=== PATIENT | female | born 1955 | race American Indian/Alaskan Native ===

== ENCOUNTER 2017-08-26 08:02 | Outpatient (CLI) | payer BC ==
--- NOTE | 2017-08-26 14:57 | Mammography Report ---
BILATERAL DIGITAL SCREENING MAMMOGRAM with CAD: 08/26/17 08:02:00 CLINICAL: Routine screening. COMPARISON:05/16/16 FINDINGS: The breasts are almost entirely fatty. No mass, architectural distortion or suspicious calcifications. IMPRESSION: No mammographic evidence of malignancy. BI-RADS CATEGORY: 1 - - Negative RECOMMENDATION: Routine mammographic screening in one year. COMMENT: Patient follow-up letters are generated by our [employer] application.
== END 2017-08-26 08:03 | disposition home or self-care (01) ==
LOC: SPVWC 08:02
PROVIDERS: ATTEND Internal Medicine
DX: Z12.31 Encounter for screening mammogram for malignant neoplasm of breast (principal)
CPT/HCPCS: 77067

== ENCOUNTER 2017-09-30 15:04 | Outpatient (CLI) | payer OTHER ==
--- NOTE | 2017-10-02 12:01 | Mammography Report ---
BONE DENSITY STUDY: Osteoporosis screening. DEFINITIONS: BMD = Bone Mineral Density T-score = BMD related to mean peak bone mass of young adult (mean expressed in Standard Deviation) Z-score = Age matched BMD expressed in SD World Health Organization (WHO) Diagnostic Criteria Normal T-score > -1 SD Osteopenia T-score between -1 and -2.4 SD Osteoporosis T-score -2.5 SD or below FINDINGS: The weighted average BMD of lumbar spine L1-L4 is 1.062 with a T-score of 0.1. The weighted average BMD of the left hip is 0.947 with a T-score of 0.0. IMPRESSION: The patient's average T-score is diagnostic for normal bone density and low relative risk for fracture. NOTE: BMD is not the only risk factor for fracture; also consider factors such as the patient's age, risk of falling, previous osteoporotic fracture, family history of osteoporotic fractures, current smoker, and low body weight. Mack's triangle is a region of interest in femur, predominantly of trabecular bone. It is not a true anatomic site, and ISCD does not recommend its use clinically.
== END 2017-09-30 15:05 | disposition home or self-care (01) ==
LOC: MAMMO 15:04
PROVIDERS: ATTEND Internal Medicine
DX: M81.0 Age-related osteoporosis without current pathological fracture (principal)
CPT/HCPCS: 77080

== ENCOUNTER 2018-09-05 08:52 | Outpatient (CLI) | payer BC, OTHER ==
--- NOTE | 2018-09-05 10:45 | Mammography Report ---
Screening mammogram: Routine views compared to prior exams dating back to 2016. In the right MLO view there is a circumscribed small dense nodule measuring 2.5 mm. It is only identified in the lateral projection. It may have been present and even smaller on prior mammogram in 2018. The findings are otherwise fatty replaced bilaterally with no other findings and no interval changes. CAD is not captured. Impression: Right breast asymmetry. Recommendation: Additional compression imaging of the right breast and ultrasound as needed. BI-RADS CATEGORY: 0 = Needs additional imaging evaluation ACR BI-RADS MAMMOGRAPHIC CODES: 0 = Needs additional imaging evaluation; 1 = Negative; 2 = Benign; 3 = Probably benign; 4 = Suspicious; 5 = Malignant; 6 = Known biopsy-proven malignancy COMMENT: 1. Dense breast tissue, i.e., adenosis, fibrocystic changes, etc., may obscure an underlying neoplasm. 2. Approximately 10% of cancers are not detected with mammography. 3. A negative mammography report should not delay biopsy if a clinically suspicious mass is present.
== END 2018-09-05 08:53 | disposition home or self-care (01) ==
LOC: SPVWC 08:52
PROVIDERS: ATTEND Internal Medicine
DX: Z12.31 Encounter for screening mammogram for malignant neoplasm of breast (principal)
CPT/HCPCS: 77067

== ENCOUNTER 2018-09-25 09:13 | Outpatient (CLI) | payer BC ==
--- NOTE | 2018-09-25 10:10 | Mammography Report ---
RIGHT DIGITAL DIAGNOSTIC MAMMOGRAM : 09/25/18 09:13:00 CLINICAL: Recalled for asymmetry. COMPARISON:09/05/18 screening FINDINGS: Additional mammographic views were performed and are negative. IMPRESSION: Negative Mammogram. BI-RADS CATEGORY: 1 -- Negative RECOMMENDATION: Routine mammographic screening in one year. COMMENT: 1. Dense breast tissue, i.e., adenosis, fibrocystic changes, etc., may obscure an underlying neoplasm. 2. Approximately 10% of cancers are not detected with mammography. 3. A negative mammography report should not delay biopsy if a clinically suspicious mass is present. COMMENT: Patient follow-up letters are generated via our [employer] application.
== END 2018-09-25 09:14 | disposition home or self-care (01) ==
LOC: SPVWC 09:13
PROVIDERS: ATTEND Internal Medicine
DX: R92.8 Other abnormal and inconclusive findings on diagnostic imaging of breast (principal)

== ENCOUNTER 2019-02-04 13:40 | Observation (INO) | payer BC ==
[2019-02-04] MEDS ORDERED: ANTIVERT PO ONE (14:40)
[2019-02-04] MEDS ORDERED: FIORICET PO ONE (14:40)
[2019-02-04] MEDS ORDERED: ZOFRAN IV ONE (14:40)
--- NOTE | 2019-02-04 14:44 | Emergency Department Report ---
HPI - General Chief Complaint: Dizziness Time Seen by Provider: 02/04/19 14:22 - HPI HPI: Room 3 The patient is a 63-year-old female presenting with a chief complaint syncope. The patient states she has had an intermittent headache and dizziness for the past 5 days. The patient states yesterday while at work she had gotten up from her desk and began walking towards a follow When she had a syncopal episode the patient denies any preceding symptoms. Patient denies shortness of breath, palpitations, chest pain or dizziness at the time. Patient states her next memory is awakening on the floor surrounded by staff. EMS was called and came to the scene to evaluate the patient. EMS recommended the patient be transported to the hospital but patient refused. Patient states she went to an urgent care facility later that evening and was advised to come to the ED. The patient states she went home and started this morning went to see her primary physician when turn sent the patient to the ED. Patient complains of still having a headache currently and gives his pain a score of 10/10. Patient denies history of fever. Patient states she had some episodes of nausea vomiting. The patient states her dizziness does not change with change in position Location: [See above] Duration: [See above] Quality: [See above] Severity: [See above] Timing: [See above] Context: [See above] Modifying factors: [See above] Associated signs and symptoms: [see above] ED Past Medical Hx - Past Medical History Previous Medical History?: Yes Hx Hypertension: Yes Hx Diabetes: Yes Additional medical history: high cholestrol. fibromyalgia - Surgical History Past Surgical History?: No - Family History Family history: no significant - Social History Smoking Status: Former Smoker (none 19 years) Substance Use Type: None - Medications Home Medications: Home Medications Medication Instructions Recorded Confirmed Last Taken Type DULoxetine [Cymbalta] 60 mg PO QDAY 02/04/19 02/04/19 02/03/19 History Labetalol [Labetalol 200mg TAB] 200 mg PO BID 02/04/19 02/04/19 02/03/19 History Lovastatin [Altoprev] 20 mg PO QHS 02/04/19 02/04/19 02/03/19 History Pregabalin [Lyrica] 50 mg PO QHS 02/04/19 02/04/19 02/03/19 History Sitagliptin Phosphate [Januvia] 100 mg PO QDAY 02/04/19 02/04/19 02/03/19 History metFORMIN [Glucophage] 500 mg PO BID 02/04/19 02/04/19 02/03/19 History traMADol [Ultram] 50 mg PO QDAY 02/04/19 02/04/19 02/03/19 History ED Review of Systems ROS: Stated complaint: HEADACHE/DIZZINESS Other details as noted in HPI Constitutional: no symptoms reported Eyes: denies: eye pain ENT: denies: throat pain Respiratory: denies: shortness of breath Cardiovascular: denies: chest pain, palpitations Endocrine: no symptoms reported Gastrointestinal: nausea, vomiting Musculoskeletal: denies: back pain Skin: denies: lesions Neurological: headache, vertigo Physical Exam - Physical Exam Vital Signs: Vital Signs 02/04/19 13:43 Temperature 98.5 F Pulse Rate 63 Respiratory 16 Rate Blood Pressure 156/65 O2 Sat by Pulse 100 Oximetry Physical Exam: GENERAL: The patient is well-developed well-nourished female lying on stretcher not appearing to be in acute distress. [] HEENT: Normocephalic. Atraumatic. Extraocular motions are intact. Patient has moist mucous membranes. No nystagmus noted NECK: Supple. No meningitic signs are noted. Trachea midline CHEST/LUNGS: Clear to auscultation. There is no respiratory distress noted. HEART/CARDIOVASCULAR: Regular. There is no tachycardia. There is no gallop rub or murmur. ABDOMEN: Abdomen is soft, nontender. Patient has normal bowel sounds. There is no abdominal distention. SKIN: There is no rash. There is no edema. There is no diaphoresis. NEURO: The patient is awake, alert, and oriented. The patient is cooperative. The patient has no focal neurologic deficits. The patient has normal speech. Cranial nerves II through XII grossly intact, no drift MUSCULOSKELETAL: There is no evidence of acute injury. ED Course Vital Signs 02/04/19 13:43 Temperature 98.5 F Pulse Rate 63 Respiratory 16 Rate Blood Pressure 156/65 O2 Sat by Pulse 100 Oximetry ED Medical Decision Making - Lab Data Result diagrams: 02/04/19 15:08 02/04/19 15:08 Laboratory Tests 02/04/19 02/04/19 02/04/19 15:08 15:08 15:08 WBC 7.0 RBC 4.90 Hgb 14.3 Hct 43.7 H MCV 89 MCH 29 MCHC 33 RDW 15.2 Plt Count 248 Lymph % (Auto) 29.9 Vermilion % (Auto) 6.5 Eos % (Auto) 2.2 Baso % (Auto) 1.0 Lymph # 2.1 Vermilion # 0.5 Eos # 0.2 Baso # 0.1 Seg Neutrophils % 60.4 Seg Neutrophils # 4.2 PT 12.6 INR 0.97 APTT 27.3 D-Dimer 675.71 H Sodium 142 Potassium 4.8 Chloride 104.5 Carbon Dioxide 23 Anion Gap 19 BUN 13 Creatinine 0.7 Estimated GFR > 60 BUN/Creatinine Ratio 19 Glucose 134 H Calcium 9.0 Magnesium 1.80 Total Bilirubin 0.20 AST 19 ALT 11 Alkaline Phosphatase 68 Troponin T < 0.010 NT-Pro-B Natriuret Pep 52.15 Total Protein 7.2 Albumin 3.8 L Albumin/Globulin Ratio 1.1 TSH Free T4 02/04/19 15:08 WBC RBC Hgb Hct MCV MCH MCHC RDW Plt Count Lymph % (Auto) Vermilion % (Auto) Eos % (Auto) Baso % (Auto) Lymph # Vermilion # Eos # Baso # Seg Neutrophils % Seg Neutrophils # PT INR APTT D-Dimer Sodium Potassium Chloride Carbon Dioxide Anion Gap BUN Creatinine Estimated GFR BUN/Creatinine Ratio Glucose Calcium Magnesium Total Bilirubin AST ALT Alkaline Phosphatase Troponin T NT-Pro-B Natriuret Pep Total Protein Albumin Albumin/Globulin Ratio TSH 1.080 Free T4 1.32 - EKG Data -: EKG Interpreted by Md EKG shows normal: sinus rhythm Rate: bradycardia (58 bpm) - EKG Data When compared to previous EKG there are: previous EKG unavailable Interpretation: other (no ischemic changes seen) - Radiology Data Radiology results: report reviewed (CT chest, CT head), image reviewed (CT chest, CT head) [facility] [address] [place] [address] Cat Scan Report Signed Patient: MOHAN PAPPAS MR#: [id number] : 1955 Acct:[id number] Age/Sex: 63 / F ADM Date: 02/04/19 Loc: ED Attending Dr: Ordering Physician: EFREN MARTINEZ MD Date of Service: 02/04/19 Procedure(s): CT angio chest Accession Number(s): [id number] cc: EFREN MARTINEZ MD CT angio chest INDICATION: syncope, dizziness, elevated d-dimer. TECHNIQUE: All CT scans at this location are performed using CT dose reduction for ALARA by means of automated exposure control. Precontrast localizer images were obtained, followed by axial and 3-dimensional reconstruction images, performed at an independent workstation by the geospatial technologist after IV bolus contrast injection. COMPARISON: None available. FINDINGS: Mediastinum, jennie and upper abdomen appear negative. There are slightly enlarged axillary nodes bilaterally, slightly more prominent on the left. No pleural fluid. No significant pulmonary lesions. No evidence of pulmonary embolus. IMPRESSION: 1. Negative for pulmonary embolus. 2. Mild axillary adenopathy, of uncertain etiology and significance. Signer Name: Blayne Guzman MD Signed: 02/04/2019 5:47 PM Workstation Name: [id number] Transcribed By: TM Dictated By: Blayne Guzman MD Electronically Authenticated By: Blayne Guzman MD Signed Date/Time: 02/04/191746 DD/ 43 TD/TT: [facility] [address] [place] [address] Cat Scan Report Signed Patient: MOHAN PAPPAS MR#: [id number] : 1955 Acct:[id number] Age/Sex: 63 / F ADM Date: 02/04/19 Loc: ED Attending Dr: Ordering Physician: EFREN MARTINEZ MD Date of Service: 02/04/19 Procedure(s): CT head/brain wo con Accession Number(s): [id number] cc: EFREN MARTINEZ MD CT head/brain wo con INDICATION: syncope. TECHNIQUE: Routine CT head without contrast. All CT scans at this location are performed using CT dose reduction for ALARA by means of automated exposure control. COMPARISON: Head CT dated 07/18/2012. FINDINGS: (There is contrast in the venous system secondary to the previous CT angiogram chest and earlier on 02/04/2019). BRAIN / INTRACRANIAL CONTENTS: No acute hemorrhage, mass effect, midline shift, or hydrocephalus. No appreciable acute large territorial or lacunar infarct. No chronic infarct or focal atrophy. Normal brain volume and ventricular/sulcal size for age. ORBITS: No significant abnormality of visualized orbits. SINUSES / MASTOIDS: No significant abnormality of visualized sinuses and mastoid air cells. ADDITIONAL FINDINGS: None. IMPRESSION: 1. No acute intracranial abnormality. Signer Name: Todd Landaverde MD Signed: 02/04/2019 6:49 PM Workstation Name: [id number] Transcribed By: OVIDIO Dictated By: Todd Landaverde MD Electronically Authenticated By: Todd Landaverde MD Signed Date/Time: 02/04/191848 DD/ 47 TD/TT: - Differential Diagnosis syncope, dysrhythmia, PE, intracranial mass, ICH Critical care attestation.: If time is entered above; I have spent that time in minutes in the direct care of this critically ill patient, excluding procedure time. ED Disposition Clinical Impression: Syncope Disposition: OP ADMIT IP TO THIS HOSP Is pt being admited?: Yes Does the pt Need Aspirin: Yes Condition: Fair Instructions: Syncope (ED) Referrals: Richi ARREDONDO MD [Primary Care Provider] - 3-5 Days Time of Disposition: 18:56 (Hospitalist paged (Dr Marmolejo))
[2019-02-04 15:15] LABS: Basophils # (Auto) 0.1 K/mm3 (0.0-0.1); Eosinophils # (Auto) 0.2 K/mm3 (0.0-0.4); Eosinophils % (Auto) 2.2 % (0.0-4.3); Hematocrit 43.7 % (30.3-42.9); Hemoglobin 14.3 gm/dl (10.1-14.3); Lymphocytes # (Auto) 2.1 K/mm3 (1.2-5.4); Lymphocytes % (Auto) 29.9 % (13.4-35.0); Mean Corpuscular HGB Conc 33 % (30-34); Mean Corpuscular Volume 89 fl (79-97); Monocytes # (Auto) 0.5 K/mm3 (0.0-0.8); Monocytes % (Auto) 6.5 % (0.0-7.3); Platelet Count 248 K/mm3 (140-440); Red Cell Distribution Width 15.2 % (13.2-15.2)
[2019-02-04 15:26] LABS: INR 0.97 (0.87-1.13)
[2019-02-04 15:27] LABS: Partial Thromboplastin Time 27.3 Sec. (24.2-36.6)
[2019-02-04 15:42] LABS: Albumin 3.8 g/dL (3.9-5); BUN/Creatinine Ratio 19; Blood Urea Nitrogen 13 mg/dL (7-17); Hemolysis Index 95
[2019-02-04 15:49] LABS: Free T4 (Free Thyroxine) 1.32 ng/dL (0.76-1.46)
[2019-02-04 15:56] LABS: Alanine Aminotransferase 11 units/L (7-56)
[2019-02-04 17:10] LABS: Bacteria,Urine 1+ /HPF (Negative); Bilirubin,Urine NEG (Negative); Blood,Urine NEG (Negative); Color,Urine Yellow (Yellow); Mucus,Urine FEW /HPF; Protein,Urine <15 mg/dL mg/dL (Negative); Urobilinogen,Urine < 2.0 mg/dL (<2.0)
--- NOTE | 2019-02-04 17:52 | Cat Scan Report ---
CT angio chest INDICATION: syncope, dizziness, elevated d-dimer. TECHNIQUE: All CT scans at this location are performed using CT dose reduction for ALARA by means of automated e xposure control. Precontrast localizer images were obtained, followed by axial and 3-dimensional harley nstruction images, performed at an independent workstation by the isotope technologist after IV bolus cont rast injection. COMPARISON: None available. FINDINGS: Mediastinum, jennie and upper abdomen appear negative. There are slightly enlarged axillary nodes bilat erally, slightly more prominent on the left. No pleural fluid. No significant pulmonary lesions. No evidence of pulmonary embolus. IMPRESSION: 1. Negative for pulmonary embolus. 2. Mild axillary adenopathy, of uncertain etiology and significance. Signer Name: Blayne Guzman MD Signed: 02/04/2019 5:47 PM Workstation Name: [id number]
--- NOTE | 2019-02-04 18:54 | Cat Scan Report ---
CT head/brain wo con INDICATION: syncope. TECHNIQUE: Routine CT head without contrast. All CT scans at this location are performed using CT dos e reduction for ALARA by means of automated exposure control. COMPARISON: Head CT dated 07/18/2012. FINDINGS: (There is contrast in the venous system secondary to the previous CT angiogram chest and ea rlier on 02/04/2019). BRAIN / INTRACRANIAL CONTENTS: No acute hemorrhage, mass effect, midline shift, or hydrocephalus. No appreciable acute large territorial or lacunar infarct. No chronic infarct or focal atrophy. Normal b rain volume and ventricular/sulcal size for age. ORBITS: No significant abnormality of visualized orbits. SINUSES / MASTOIDS: No significant abnormality of visualized sinuses and mastoid air cells. ADDITIONAL FINDINGS: None. IMPRESSION: 1. No acute intracranial abnormality. Signer Name: Todd Landaverde MD Signed: 02/04/2019 6:49 PM Workstation Name: [id number]
[2019-02-04] MEDS ORDERED: ASPIRIN PO ONE (18:57)
[2019-02-04] MEDS ORDERED: MILK OF MAGNESIA PO PRN ×2 (23:18)
[2019-02-04] MEDS ORDERED: SODIUM CHLORIDE FLUSH SYRINGE 10 ML IV PRN (23:18)
[2019-02-04] MEDS ORDERED: SODIUM CHLORIDE FLUSH SYRINGE 10 ML INJ PRN (23:18)
[2019-02-04] MEDS ORDERED: DULCOLAX PR PRN (23:18)
[2019-02-04] MEDS ORDERED: REGLAN PO PRN (23:18)
[2019-02-04] MEDS ORDERED: TYLENOL PO PRN (23:18)
[2019-02-04] MEDS ORDERED: SENOKOT PO PRN (23:18)
[2019-02-04] MEDS ORDERED: PHENERGAN PR PRN (23:18)
[2019-02-04] MEDS ORDERED: ZOFRAN IV PRN ×2 (23:18)
[2019-02-05] MEDS ORDERED: ANTIVERT PO PRN (00:13)
[2019-02-05] MEDS ORDERED: D50W (25GM) Syringe IV PRN (00:16)
[2019-02-05] MEDS: SODIUM CHLORIDE FLUSH SYRINGE 10 ML IV SCH ×3 (00:30→22:00)
[2019-02-05 04:05] LABS: Creatine Kinase MB 1.9 ng/mL (0.0-4.0)
[2019-02-05 04:06] LABS: Chol/HDL Ratio 4.18 %
--- NOTE | 2019-02-05 04:43 | History and Physical Report ---
<HUNTER BESS - Last Filed: 02/05/19 04:43> History of Present Illness Date of examination: 02/04/19 Date of admission: 02/04/19 21:50 Chief complaint: syncopal episode History of present illness: Pt is a 63-year-old female with PMHx of HTN and DM type 2 who presents to the ER with c/o syncope x 2 days ago. Patient states that the episode occurred while she was at work, she became dizzy and passed out. Pt states that EMS was called, and she decided to go to an urgent care for evaluation. Pt states that the urgent care referred her to the ER, but she decided to go home and went to her PCP in the morning. Pt states that she went to see her PCP early today, he advised her to come to the ER for further evaluation of her syncope. Patient reports that her BP medication was changed not too long ago, she c/o headache and dizziness worse with movement and change and position, c/o nausea and malaise, denies palpitation, denies chest pain, denies SOB. Pt was evaluate and the ER and admitted for further evaluation. Past History Past Medical History: diabetes, hypertension Past Surgical History: No surgical history Social history: no significant social history, lives with family Family history: no significant family history Medications and Allergies Allergies Allergy/AdvReac Type Severity Reaction Status Date / Time Penicillins Allergy Rash Verified 02/04/19 14:01 Home Medications Medication Instructions Recorded Confirmed Last Taken Type DULoxetine [Cymbalta] 60 mg PO QDAY 02/04/19 02/04/19 02/03/19 History Labetalol [Labetalol 200mg TAB] 200 mg PO BID 02/04/19 02/04/19 02/03/19 History Lovastatin [Altoprev] 20 mg PO QHS 02/04/19 02/04/19 02/03/19 History Pregabalin [Lyrica] 50 mg PO QHS 02/04/19 02/04/19 02/03/19 History Sitagliptin Phosphate [Januvia] 100 mg PO QDAY 02/04/19 02/04/19 02/03/19 Histor y metFORMIN [Glucophage] 500 mg PO BID 02/04/19 02/04/19 02/03/19 History traMADol [Ultram] 50 mg PO QDAY 02/04/19 02/04/19 02/03/19 History Active Meds: Active Medications Acetaminophen (Tylenol) 650 mg PO Q4H PRN PRN Reason: Pain MILD(1-3)/Fever >100.5/[place] Aspirin (Aspirin) 325 mg PO QDAY [facility] Bisacodyl (Dulcolax) 10 mg LA QDAY PRN PRN Reason: Constipation Dextrose (D50w (25gm) Syringe) 50 ml IV PRN PRN PRN Reason: Hypoglycemia Duloxetine HCl (Cymbalta) 60 mg PO QDAY [facility] Enoxaparin Sodium (Lovenox) 40 mg SUB-Q QDAY@1000 [facility] Insulin Glargine (Lantus) 10 units SUB-Q QHS [facility] Insulin Human Regular (Humulin R) 0 units SUB-Q ACHS [facility]; Protocol Magnesium Hydroxide (Milk Of Magnesia) 30 ml PO Q4H PRN PRN Reason: Constipation Meclizine HCl (Antivert) 25 mg PO Q8H PRN PRN Reason: Vertigo Metoclopramide HCl (Reglan) 10 mg PO Q6H PRN PRN Reason: Nausea And Vomiting Ondansetron HCl (Zofran) 4 mg IV Q8H PRN PRN Reason: Nausea And Vomiting Pravastatin Sodium (Pravachol) 20 mg PO QHS [facility] Pregabalin (Lyrica) 50 mg PO QHS [facility] Promethazine HCl (Phenergan) 25 mg LA Q6H PRN PRN Reason: Nausea And Vomiting Senna (Senokot) 8.6 mg PO Q12H PRN PRN Reason: Laxative Effect Sodium Chloride (Sodium Chloride Flush Syringe 10 Ml) 10 ml IV BID [facility] Last Admin: 02/05/19 00:30 Dose: 10 ml Documented by: Sodium Chloride (Sodium Chloride Flush Syringe 10 Ml) 10 ml IV PRN PRN PRN Reason: LINE FLUSH Exam - Constitutional Vitals: Temp Pulse Resp BP Pulse Ox 97.8 F 64 18 154/69 98 02/05/19 03:33 02/05/19 03:33 02/05/19 03:33 02/05/19 03:33 02/05/19 03:33 General appearance: Present: mild distress - EENT Eyes: Present: EOM intact ENT: hearing intact - Neck Neck: Present: supple - Respiratory Respiratory effort: normal Respiratory: bilateral: CTA - Cardiovascular Heart rate: 58 Rhythm: regular Heart Sounds: Present: S1 & S2 - Extremities Extremities: No edema Peripheral Pulses: within normal limits - Abdominal General gastrointestinal: Present: deferred Female genitourinary: Present: deferred - Rectal Rectal Exam: deferred - Integumentary Integumentary: Present: warm, dry - Musculoskeletal Musculoskeletal: strength equal bilaterally - Psychiatric Psychiatric: appropriate mood/affect - Neurologic Neurologic: moves all extremities Results - Labs CBC & Chem 7: 02/04/19 15:08 02/04/19 15:08 Labs: Laboratory Last Values WBC 7.0 K/mm3 (4.5-11.0) 02/04/19 15:08 RBC 4.90 M/mm3 (3.65-5.03) 02/04/19 15:08 Hgb 14.3 gm/dl (10.1-14.3) 02/04/19 15:08 Hct 43.7 % (30.3-42.9) H 02/04/19 15:08 MCV 89 fl (79-97) 02/04/19 15:08 MCH 29 pg (28-32) 02/04/19 15:08 MCHC 33 % (30-34) 02/04/19 15:08 RDW 15.2 % (13.2-15.2) 02/04/19 15:08 Plt Count 248 K/mm3 (140-440) 02/04/19 15:08 Lymph % (Auto) 29.9 % (13.4-35.0) 02/04/19 15:08 [place] % (Auto) 6.5 % (0.0-7.3) 02/04/19 15:08 Eos % (Auto) 2.2 % (0.0-4.3) 02/04/19 15:08 Baso % (Auto) 1.0 % (0.0-1.8) 02/04/19 15:08 Lymph # 2.1 K/mm3 (1.2-5.4) 02/04/19 15:08 [place] # 0.5 K/mm3 (0.0-0.8) 02/04/19 15:08 Eos # 0.2 K/mm3 (0.0-0.4) 02/04/19 15:08 Baso # 0.1 K/mm3 (0.0-0.1) 02/04/19 15:08 Seg Neutrophils % 60.4 % (40.0-70.0) 02/04/19 15:08 Seg Neutrophils # 4.2 K/mm3 (1.8-7.7) 02/04/19 15:08 PT 12.6 Sec. (12.2-14.9) 02/04/19 15:08 INR 0.97 (0.87-1.13) 02/04/19 15:08 APTT 27.3 Sec. (24.2-36.6) 02/04/19 15:08 675.71 ng/mlDDU (0-234) H 02/04/19 15:08 Sodium 142 mmol/L (137-145) 02/04/19 15:08 Potassium 4.8 mmol/L (3.6-5.0) 02/04/19 15:08 Chloride 104.5 mmol/L (98-107) 02/04/19 15:08 Carbon Dioxide 23 mmol/L (22-30) 02/04/19 15:08 19 mmol/L 02/04/19 15:08 BUN 13 mg/dL (7-17) 02/04/19 15:08 0.7 mg/dL (0.7-1.2) 02/04/19 15:08 Estimated GFR > 60 ml/min 02/04/19 15:08 19 % 02/04/19 15:08 Glucose 134 mg/dL (65-100) H 02/04/19 15:08 POC Glucose 113 (70-105) H 02/05/19 00:32 Calcium 9.0 mg/dL (8.4-10.2) 02/04/19 15:08 Magnesium 1.80 mg/dL (1.7-2.3) 02/04/19 15:08 0.20 mg/dL (0.1-1.2) 02/04/19 15:08 AST 19 units/L (5-40) 02/04/19 15:08 ALT 11 units/L (7-56) 02/04/19 15:08 68 units/L (35-129) 02/04/19 15:08 160 units/L (30-135) H 02/05/19 03:28 CK-MB (CK-2) 1.9 ng/mL (0.0-4.0) 02/05/19 03:28 CK-MB (CK-2) Rel Index 1.1 (0-4) 02/05/19 03:28 < 0.010 ng/mL (0.00-0.029) 02/05/19 03:28 NT-Pro-B Natriuret Pep 52.15 pg/mL (0-900) 02/04/19 15:08 7.2 g/dL (6.3-8.2) 02/04/19 15:08 3.8 g/dL (3.9-5) L 02/04/19 15:08 1.1 % 02/04/19 15:08 Triglycerides 73 mg/dL (2-149) 02/05/19 03:28 Cholesterol 138 mg/dL (50-199) 02/05/19 03:28 88 mg/dL (50-130) 02/05/19 03:28 33 mg/dL (40-59) L 02/05/19 03:28 4.18 % 02/05/19 03:28 TSH 1.080 mlU/mL (0.270-4.200) 02/04/19 15:08 Free T4 1.32 ng/dL (0.76-1.46) 02/04/19 15:08 Yellow (Yellow) 02/04/19 16:35 Slightly-cloudy (Clear) 02/04/19 16:35 6.0 (5.0-7.0) 02/04/19 16:35 Ur Specific [place] 1.023 (1.003-1.030) 02/04/19 16:35 <15 mg/dl mg/dL (Negative) 02/04/19 16:35 Neg mg/dL (Negative) 02/04/19 16:35 Tr mg/dL (Negative) 02/04/19 16:35 Neg (Negative) 02/04/19 16:35 Neg (Negative) 02/04/19 16:35 Neg (Negative) 02/04/19 16:35 < 2.0 mg/dL (<2.0) 02/04/19 16:35 Ur Leukocyte Esterase Sm (Negative) 02/04/19 16:35 5.0 /HPF (0.0-6.0) 02/04/19 16:35 1.0 /HPF (0.0-6.0) 02/04/19 16:35 U Epithel Cells (Auto) 6.0 /HPF (0-13.0) 02/04/19 16:35 1+ /HPF (Negative) 02/04/19 16:35 Few /HPF 02/04/19 16:35 Assessment and Plan Assessment and plan: Acute Positional vertigo (likely due to meds) Bradycardia (likely due to medication) HTN (BP stable) DM type 2 Plan: Admit to medtele for Syncope Continue neuro check IVF for hydration Antiemetic with zofran PRN Meclizine 25 mg PRN for dizziness Cardiac consult for evaluation Accu check ACHS with insulin per sliding scale Orthostatic VS 2D echo Bilateral carotid US Resume home meds DVT prophylaxis Advance Directives: Yes VTE prophylaxis?: Mechanical Plan of care discussed with patient/family: Yes <AGUSTINA POE - Last Filed: 02/05/19 06:18> History of Present Illness Date of admission: 02/04/19 21:50 Medications and Allergies Active Meds: Active Medications Acetaminophen (Tylenol) 650 mg PO Q4H PRN PRN Reason: Pain MILD(1-3)/Fever >100.5/[place] Aspirin (Aspirin) 325 mg PO QDAY [facility] Bisacodyl (Dulcolax) 10 mg LA QDAY PRN PRN Reason: Constipation Dextrose (D50w (25gm) Syringe) 50 ml IV PRN PRN PRN Reason: Hypoglycemia Duloxetine HCl (Cymbalta) 60 mg PO QDAY [facility] Enoxaparin Sodium (Lovenox) 40 mg SUB-Q QDAY@1000 [facility] Insulin Glargine (Lantus) 10 units SUB-Q QHS [facility] Insulin Human Regular (Humulin R) 0 units SUB-Q ACHS [facility]; Protocol Magnesium Hydroxide (Milk Of Magnesia) 30 ml PO Q4H PRN PRN Reason: Constipation Meclizine HCl (Antivert) 25 mg PO Q8H PRN PRN Reason: Vertigo Metoclopramide HCl (Reglan) 10 mg PO Q6H PRN PRN Reason: Nausea And Vomiting Ondansetron HCl (Zofran) 4 mg IV Q8H PRN PRN Reason: Nausea And Vomiting Pravastatin Sodium (Pravachol) 20 mg PO QHS [facility] Pregabalin (Lyrica) 50 mg PO QHS [facility] Promethazine HCl (Phenergan) 25 mg LA Q6H PRN PRN Reason: Nausea And Vomiting Senna (Senokot) 8.6 mg PO Q12H PRN PRN Reason: Laxative Effect Sodium Chloride (Sodium Chloride Flush Syringe 10 Ml) 10 ml IV BID [facility] Last Admin: 02/05/19 00:30 Dose: 10 ml Documented by: Sodium Chloride (Sodium Chloride Flush Syringe 10 Ml) 10 ml IV PRN PRN PRN Reason: LINE FLUSH Exam - Constitutional Vitals: Temp Pulse Resp BP Pulse Ox 97.8 F 64 18 154/69 98 02/05/19 03:33 02/05/19 03:33 02/05/19 03:33 02/05/19 03:33 02/05/19 03:33 Results - Labs CBC & Chem 7: 02/04/19 15:08 02/04/19 15:08 Labs: Laboratory Last Values WBC 7.0 K/mm3 (4.5-11.0) 02/04/19 15:08 RBC 4.90 M/mm3 (3.65-5.03) 02/04/19 15:08 Hgb 14.3 gm/dl (10.1-14.3) 02/04/19 15:08 Hct 43.7 % (30.3-42.9) H 02/04/19 15:08 MCV 89 fl (79-97) 02/04/19 15:08 MCH 29 pg (28-32) 02/04/19 15:08 MCHC 33 % (30-34) 02/04/19 15:08 RDW 15.2 % (13.2-15.2) 02/04/19 15:08 Plt Count 248 K/mm3 (140-440) 02/04/19 15:08 Lymph % (Auto) 29.9 % (13.4-35.0) 02/04/19 15:08 [place] % (Auto) 6.5 % (0.0-7.3) 02/04/19 15:08 Eos % (Auto) 2.2 % (0.0-4.3) 02/04/19 15:08 Baso % (Auto) 1.0 % (0.0-1.8) 02/04/19 15:08 Lymph # 2.1 K/mm3 (1.2-5.4) 02/04/19 15:08 [place] # 0.5 K/mm3 (0.0-0.8) 02/04/19 15:08 Eos # 0.2 K/mm3 (0.0-0.4) 02/04/19 15:08 Baso # 0.1 K/mm3 (0.0-0.1) 02/04/19 15:08 Seg Neutrophils % 60.4 % (40.0-70.0) 02/04/19 15:08 Seg Neutrophils # 4.2 K/mm3 (1.8-7.7) 02/04/19 15:08 PT 12.6 Sec. (12.2-14.9) 02/04/19 15:08 INR 0.97 (0.87-1.13) 02/04/19 15:08 APTT 27.3 Sec. (24.2-36.6) 02/04/19 15:08 675.71 ng/mlDDU (0-234) H 02/04/19 15:08 Sodium 142 mmol/L (137-145) 02/04/19 15:08 Potassium 4.8 mmol/L (3.6-5.0) 02/04/19 15:08 Chloride 104.5 mmol/L (98-107) 02/04/19 15:08 Carbon Dioxide 23 mmol/L (22-30) 02/04/19 15:08 19 mmol/L 02/04/19 15:08 BUN 13 mg/dL (7-17) 02/04/19 15:08 0.7 mg/dL (0.7-1.2) 02/04/19 15:08 Estimated GFR > 60 ml/min 02/04/19 15:08 19 % 02/04/19 15:08 Glucose 134 mg/dL (65-100) H 02/04/19 15:08 POC Glucose 113 (70-105) H 02/05/19 00:32 Calcium 9.0 mg/dL (8.4-10.2) 02/04/19 15:08 Magnesium 1.80 mg/dL (1.7-2.3) 02/04/19 15:08 0.20 mg/dL (0.1-1.2) 02/04/19 15:08 AST 19 units/L (5-40) 02/04/19 15:08 ALT 11 units/L (7-56) 02/04/19 15:08 68 units/L (35-129) 02/04/19 15:08 160 units/L (30-135) H 02/05/19 03:28 CK-MB (CK-2) 1.9 ng/mL (0.0-4.0) 02/05/19 03:28 CK-MB (CK-2) Rel Index 1.1 (0-4) 02/05/19 03:28 < 0.010 ng/mL (0.00-0.029) 02/05/19 03:28 NT-Pro-B Natriuret Pep 52.15 pg/mL (0-900) 02/04/19 15:08 7.2 g/dL (6.3-8.2) 02/04/19 15:08 3.8 g/dL (3.9-5) L 02/04/19 15:08 1.1 % 02/04/19 15:08 Triglycerides 73 mg/dL (2-149) 02/05/19 03:28 Cholesterol 138 mg/dL (50-199) 02/05/19 03:28 88 mg/dL (50-130) 02/05/19 03:28 33 mg/dL (40-59) L 02/05/19 03:28 4.18 % 02/05/19 03:28 TSH 1.080 mlU/mL (0.270-4.200) 02/04/19 15:08 Free T4 1.32 ng/dL (0.76-1.46) 02/04/19 15:08 Yellow (Yellow) 02/04/19 16:35 Slightly-cloudy (Clear) 02/04/19 16:35 6.0 (5.0-7.0) 02/04/19 16:35 Ur Specific [place] 1.023 (1.003-1.030) 02/04/19 16:35 <15 mg/dl mg/dL (Negative) 02/04/19 16:35 Neg mg/dL (Negative) 02/04/19 16:35 Tr mg/dL (Negative) 02/04/19 16:35 Neg (Negative) 02/04/19 16:35 Neg (Negative) 02/04/19 16:35 Neg (Negative) 02/04/19 16:35 < 2.0 mg/dL (<2.0) 02/04/19 16:35 Ur Leukocyte Esterase Sm (Negative) 02/04/19 16:35 5.0 /HPF (0.0-6.0) 02/04/19 16:35 1.0 /HPF (0.0-6.0) 02/04/19 16:35 U Epithel Cells (Auto) 6.0 /HPF (0-13.0) 02/04/19 16:35 1+ /HPF (Negative) 02/04/19 16:35 Few /HPF 02/04/19 16:35 Assessment and Plan Assessment and plan: 63-year-old woman with history of hypertension, diabetes was brought to emergency room because she has syncopal episode. Also had chest pain that started 2 days ago in the left chest. Check carotid Doppler, echo and stress t est
[2019-02-05 07:33] LABS: Creatine Kinase MB 2.1 ng/mL (0.0-4.0)
[2019-02-05] MEDS ORDERED: LOVENOX SUB-Q SCH (10:00)
[2019-02-05] MEDS: HumuLIN R SUB-Q SCH ×4 (10:54→21:57)
--- NOTE | 2019-02-05 11:18 | Vascular Lab Report ---
BILATERAL CAROTID DOPPLER ULTRASOUND INDICATION : syncope TECHNIQUE: Grayscale and color Doppler imaging performed through the neck. COMPARISON: None FINDINGS: Right: There is no significant atherosclerotic disease. Peak systolic velocity in the CCA is 80 cm/ s with end-diastolic velocity of 23 cm/s. Peak systolic velocity in the proximal ICA is 95 cm/s with end-diastolic velocity of 30 cm/s. ICA to CCA ratio is less than 2. There is antegrade flow in the E CA and the vertebral artery. Left: There is no significant atherosclerotic disease. Peak systolic velocity in the CCA is 88 cm/s w ith end-diastolic velocity of 22 cm/s. Peak systolic velocity in the proximal ICA is 113 cm/s with en d-diastolic velocity of 27 cm/s. ICA to CCA ratio is less than 2. There is antegrade flow in the ECA and the vertebral artery. IMPRESSION: No hemodynamically significant stenosis by NASCET criteria. There is less than 50% lumina l narrowing throughout both carotid systems. Signer Name: Pollo Medley Jr, MD Signed: 02/05/2019 11:14 AM Workstation Name: [id number]
[2019-02-05] MEDS ORDERED: LEXISCAN IV ONE (11:26)
--- NOTE | 2019-02-05 11:27 | Discharge Summary ---
Providers - Providers Date of Admission: 02/04/19 21:50 Attending physician: PITER SOLIZ MD 02/04/19 Consult to Physician [CONS] Routine Comment: Consulting Provider: MARGOTH ESPINAL Physician Instructions: Reason For Exam: SYNCOPE 02/04/19 23:19 Consult to Dietitian/Nutrition [CONS] Routine Physician Instructions: Reason For Exam: Reason for Consult: Nutrition Recommendations Reason for Consult: Diet education Occupational Therapy Evaluate and Treat [CONS] Routine Comment: Reason For Exam: Neuro deficits Physical Therapy Evaluation and Treat [CONS] Routine Comment: Reason For Exam: Neuro deficits 02/05/19 00:16 Consult to Dietitian/Nutrition [CONS] Routine Physician Instructions: Reason For Exam: Reason for Consult: Diet education Primary care physician: Brett ARREDONDO MD Hospitalization Condition: Stable Hospital course: Pt is a 63-year-old female with PMHx of HTN and DM type 2 who presents to the ER with c/o syncope x 2 days ago. Patient states that the episode occurred while she was at work, she became dizzy and passed out. Pt states that EMS was called, and she decided to go to an urgent care for evaluation. Pt states that the urgent care referred her to the ER, but she decided to go home and went to her PCP in the morning. Pt states that she went to see her PCP early today, he advised her to come to the ER for further evaluation of her syncope. Patient reports that her BP medication was changed not too long ago, she c/o headache and dizziness worse with movement and change and position, c/o nausea and malaise, denies palpitation, denies chest pain, denies SOB. Pt was evaluate and the ER and admitted for further evaluation. Disposition: DC-01 TO HOME OR SELFCARE Time spent for discharge: 35 mins Exam - Constitutional Vitals: Temp Pulse Resp BP Pulse Ox 98.2 F 66 18 137/66 97 02/05/19 08:02 02/05/19 10:00 02/05/19 10:00 02/05/19 08:02 02/05/19 10:00 Plan Activity: advance as tolerated, fall precautions Diet: low fat Special Instructions: record daily weights, record daily BP diary Follow up with: Richi ARREDONDO MD [Primary Care Provider] - 3-5 Days ISAIAH SAM MD [Staff Physician] - 7 Days Prescriptions: Acetaminophen [Acetaminophen TAB] 650 mg PO Q6HR PRN #20 tablet PRN Reason: Pain MILD(1-3)/Fever >100.5/[place] Meclizine [Antivert] 25 mg PO Q8H PRN #14 tablet PRN Reason: Vertigo
[2019-02-05] MEDS ORDERED: TYLENOL ONE (11:30)
[2019-02-05] MEDS ORDERED: ZOFRAN ONE (11:31)
[2019-02-05] MEDS: TYLENOL PO PRN (11:34)
--- NOTE | 2019-02-05 11:36 | Vascular Lab Report ---
DUPLEX DOPPLER LOWER EXTREMITY VEINS, BILATERAL INDICATION: DVT. Bilateral lower extremity pain. TECHNIQUE: Duplex doppler imaging was performed through the veins of both lower extremities using ve nous compression and other maneuvers. COMPARISON: No relevant prior imaging study available. FINDINGS: Right Common femoral vein: Negative. Right Superficial femoral vein: Negative. Right Popliteal vein: Negative. Right Calf veins: Negative. Left Common femoral vein: Negative. Left Superficial femoral vein: Negative. Left Popliteal vein: Negative. Left Calf veins: Negative. Additional findings: None.. IMPRESSION: No sonographic evidence for DVT in either lower extremity. Signer Name: Pollo Medley Jr, MD Signed: 02/05/2019 11:32 AM Workstation Name: [id number]
--- NOTE | 2019-02-05 13:48 | Event Note ---
Date: 02/05/19 Patient seen and examined, stress test positive. Patient planned for cardiac cath tomorrow. She still has persistent headache but improving slightly. PT for vertibular, training.
--- NOTE | 2019-02-05 13:50 | Consultation ---
History of Present Illness Consult date: 02/05/19 Requesting physician: HUNTER BESS Consult reason: syncope History of present illness: Pt is a 63-year-old female with a past medical history of HTN and DM. She is previously unknown to our practice. She presented for evaluation following a syncopal episode 2 days prior to arrival. Patient states that the episode occurred while she was at work. She was sitting at her desk and had just received some stressful emails. She got up from her desk and walked over to the [employer] cabinet and then the next thing she remembers is waking up on the floor with the paramedics around her. Pt also reports an episode of left-sided chest pain while at work last Saturday. The episode occurred while she was sitting at her desk and lasted several minutes and then resolved. She denies any occurrence of palpitations, SOB, n/v, diaphoresis. Pt denies any prior known cardiac issues, including CAD, AMI, HF or arrhythmia. Head CT with NAF, chest CTA with NAF, carotid duplex with NAF, orthostatics unremarkable. Pt underwent stress testing this AM - she was initially scheduled for treadmill stress test but experienced presyncope while on the treadmill at 77% max HR and thus her stress test was converted to lexiscan MPI. Lexiscan MPI stress test this AM was negative for perfusion defect with normal EF, however it showed TID of 1.67. Past History Past Medical History: diabetes, hypertension Past Surgical History: No surgical history Social history: lives with family. denies: smoking, alcohol abuse, prescription drug abuse Family history: no significant family history Medications and Allergies Allergies Allergy/AdvReac Type Severity Reaction Status Date / Time Penicillins Allergy Rash Verified 02/04/19 14:01 Home Medications Medication Instructions Recorded Confirmed Last Taken Type DULoxetine [Cymbalta] 60 mg PO QDAY 02/04/19 02/04/19 02/03/19 History Labetalol [Labetalol 200mg TAB] 200 mg PO BID 02/04/19 02/04/19 02/03/19 History Lovastatin [Altoprev] 20 mg PO QHS 02/04/19 02/04/19 02/03/19 History Pregabalin [Lyrica] 50 mg PO QHS 02/04/19 02/04/19 02/03/19 History Sitagliptin Phosphate [Januvia] 100 mg PO QDAY 02/04/19 02/04/19 02/03/19 History metFORMIN [Glucophage] 500 mg PO BID 02/04/19 02/04/19 02/03/19 History traMADol [Ultram 50 MG tab] 50 mg PO QDAY 02/04/19 02/04/19 02/03/19 History Acetaminophen [Acetaminophen TAB] 650 mg PO Q6HR PRN #20 tablet 02/05/19 Unknown Rx Meclizine [Antivert] 25 mg PO Q8H PRN #14 tablet 02/05/19 Unknown Rx Active Meds: Active Medications Acetaminophen (Tylenol) 650 mg PO Q4H PRN PRN Reason: Pain MILD(1-3)/Fever >100.5/BROWNING Last Admin: 02/05/19 11:34 Dose: 650 mg Documented by: Aspirin (Aspirin) 325 mg PO QDAY [facility]KA Bisacodyl (Dulcolax) 10 mg LA QDAY PRN PRN Reason: Constipation Dextrose (D50w (25gm) Syringe) 50 ml IV PRN PRN PRN Reason: Hypoglycemia Duloxetine HCl (Cymbalta) 60 mg PO QDAY [facility] Enoxaparin Sodium (Lovenox) 40 mg SUB-Q QDAY@1000 [facility] Insulin Glargine (Lantus) 10 units SUB-Q QHS [facility] Insulin Human Regular (Humulin R) 0 units SUB-Q ACHS [facility]; Protocol Last Admin: 02/05/19 10:54 Dose: Not Given Documented by: Magnesium Hydroxide (Milk Of Magnesia) 30 ml PO Q4H PRN PRN Reason: Constipation Meclizine HCl (Antivert) 25 mg PO Q8H PRN PRN Reason: Vertigo Metoclopramide HCl (Reglan) 10 mg PO Q6H PRN PRN Reason: Nausea And Vomiting Ondansetron HCl (Zofran) 4 mg IV Q8H PRN PRN Reason: Nausea And Vomiting Last Admin: 02/05/19 11:32 Dose: 4 mg Documented by: Pravastatin Sodium (Pravachol) 20 mg PO QHS [facility]KA Pregabalin (Lyrica) 50 mg PO QHS [facility] Promethazine HCl (Phenergan) 25 mg LA Q6H PRN PRN Reason: Nausea And Vomiting Senna (Senokot) 8.6 mg PO Q12H PRN PRN Reason: Laxative Effect Sodium Chloride (Sodium Chloride Flush Syringe 10 Ml) 10 ml IV BID [facility]KA Last Admin: 02/05/19 00:30 Dose: 10 ml Documented by: Sodium Chloride (Sodium Chloride Flush Syringe 10 Ml) 10 ml IV PRN PRN PRN Reason: LINE FLUSH Review of Systems Constitutional: no weight loss, no weight gain, no fever, no chills, no sweats Ears, nose, mouth and throat: no ear pain, no nose pain, no sinus pressure, no sinus pain Cardiovascular: chest pain, syncope, lightheadedness, no orthopnea, no palpit ations, no rapid/irregular heart beat, no edema, no shortness of breath, no dyspnea on exertion Respiratory: no cough, no shortness of breath, no dyspnea on exertion, no conge stion, no wheezing, no pain on inspiration Gastrointestinal: no abdominal pain, no nausea, no vomiting, no diarrhea, no constipation, no change in bowel habits Genitourinary Female: no pelvic pain, no flank pain, no dysuria, no urinary frequency, no urgency Musculoskeletal: no neck stiffness, no neck pain, no shooting arm pain, no arm numbness/tingling, no low back pain, no shooting leg pain Integumentary: no rash, no pruritis, no redness, no sores, no wounds Neurological: syncope, vertigo, no head injury, no paralysis, no weakness, no parathesias, no numbness, no tingling, no seizures Psychiatric: no anxiety Endocrine: no cold intolerance, no heat intolerance Hematologic/Lymphatic: no easy bruising, no easy bleeding Allergic/Immunologic: no urticaria Physical Examination Vital Signs Temp Pulse Resp BP Pulse Ox 98.5 F 63 16 156/65 100 02/04/19 13:43 02/04/19 13:43 02/04/19 13:43 02/04/19 13:43 02/04/19 13:43 General appearance: no acute distress HEENT: Positive: PERRL, Normocephaly, Mucus Membranes Moist Neck: Positive: neck supple, trachea midline Cardiac: Positive: Reg Rate and Rhythm, S1/S2 Lungs: Positive: Decreased Breath Sounds Neuro: Positive: Grossly Intact Abdomen: Negative: Tender Skin: Negative: Rash Musculoskeletal: No Pain Extremities: Absent: edema Results 02/04/19 15:08 02/04/19 15:08 Cardiac Enzymes 02/04/19 02/05/19 02/05/19 Range/Units 15:08 03:28 06:35 AST 19 (5-40) units/L CK-MB (CK-2) 1.9 2.1 (0.0-4.0) ng/mL Coagulation 02/04/19 Range/Units 15:08 PT 12.6 (12.2-14.9) Sec. INR 0.97 (0.87-1.13) APTT 27.3 (24.2-36.6) Sec. Lipids 02/05/19 Range/Units 03:28 Triglycerides 73 (2-149) mg/dL Cholesterol 138 (50-199) mg/dL HDL Cholesterol 33 L (40-59) mg/dL Cholesterol/HDL Ratio 4.18 % CBC 02/04/19 Range/Units 15:08 WBC 7.0 (4.5-11.0) K/mm3 RBC 4.90 (3.65-5.03) M/mm3 Hgb 14.3 (10.1-14.3) gm/dl Hct 43.7 H (30.3-42.9) % Plt Count 248 (140-440) K/mm3 Lymph # 2.1 (1.2-5.4) K/mm3 [place] # 0.5 (0.0-0.8) K/mm3 Eos # 0.2 (0.0-0.4) K/mm3 Baso # 0.1 (0.0-0.1) K/mm3 Comprehensive Metabolic Panel 02/04/19 Range/Units 15:08 Sodium 142 (137-145) mmol/L Potassium 4.8 (3.6-5.0) mmol/L Chloride 104.5 (98-107) mmol/L Carbon Dioxide 23 (22-30) mmol/L BUN 13 (7-17) mg/dL Creatinine 0.7 (0.7-1.2) mg/dL Glucose 134 H (65-100) mg/dL Calcium 9.0 (8.4-10.2) mg/dL AST 19 (5-40) units/L ALT 11 (7-56) units/L Alkaline Phosphatase 68 (35-129) units/L Total Protein 7.2 (6.3-8.2) g/dL Albumin 3.8 L (3.9-5) g/dL - Imaging and Cardiology Echo: report reviewed EKG: report reviewed, image reviewed EKG interpretations - Telemetry EKG Rhythm: Sinus Rhythm - EKG Sinus rhythms and dysrhythmias: sinus rhythm Assessment and Plan Pt presented with c/o syncope. Head CT with NAF, chest CTA with NAF, carotid duplex with NAF. Pt underwent stress testing this AM - she was initially scheduled for treadmill stress test but experienced presyncope while on the treadmill at 77% max HR and thus her stress test was converted to lexiscan MPI. Lexiscan MPI stress test this AM was negative for perfusion defect with normal EF, however it showed TID of 1.67, unclear significance. Coronary angiography recommended for definitive diagnosis. Indications, potential risks and benefits of LHC reviewed with pt and pt's family members at bedside and they are agreeable to proceed in AM. NPO after MN. The patient has been seen in conjunction with Dr. Recinos who agrees with the assessment and plan of care. - Patient Problems (1) Syncope Current Visit: Yes Status: Acute (2) Chest pain Current Visit: Yes Status: Resolved (3) HTN (hypertension) Current Visit: Yes Status: Acute (4) Diabetes Current Visit: Yes Status: Acute
[2019-02-05] MEDS ORDERED: NACL 0.9% 500 ML 500 ML IV SCH (14:00)
[2019-02-05] MEDS: CYMBALTA PO SCH (15:34)
[2019-02-05] MEDS: ASPIRIN PO SCH (15:35)
[2019-02-05] MEDS: LOVENOX SUB-Q SCH (15:35)
[2019-02-05] MEDS: FLONASE NS SCH (18:11)
[2019-02-05] MEDS: CLARITIN-D 12HR PO SCH (21:56)
[2019-02-05] MEDS ORDERED: NON-FORMULARY (Pregabalin [Lyrica] 50 MG) PO SCH (22:00)
[2019-02-05] MEDS ORDERED: PREGABALIN PO SCH (22:00)
[2019-02-05] MEDS ORDERED: NON-FORMULARY (Lovastatin [Altoprev] 20 MG) PO SCH (22:00)
[2019-02-05] MEDS ORDERED: PRAVACHOL PO SCH (22:00)
[2019-02-05] MEDS ORDERED: LANTUS SUB-Q SCH (22:00)
--- NOTE | 2019-02-06 00:27 | Treadmill Report ---
AGE: 63. SEX: Female. REFERRING PHYSICIAN: Dr. Lin, hospitalist. DESCRIPTION OF PROCEDURE: The patient received 10 mCi of technetium 99m Myoview intravenously under resting conditions. Resting myocardial perfusion scan was done. Subsequently, the patient underwent Lexiscan stress test as per the protocol. The patient received 0.4 mg of Lexiscan intravenously.Patient received 28 mci of Technetium 99 M myoview IV during the stress test. After 30-60 minutes, post stress images were done. Computerized reconstruction images were performed for analysis. The post-stress images did not reveal any perfusion abnormality. However, marked transient ischemic dilatation of the left ventricle was seen with TID ratio of 1.67. The resting images were also normal. CONCLUSION: 1. No perfusion abnormality of the left ventricular myocardium was demonstrated in the resting as well as stress images obtained after the patient underwent Lexiscan stress test. 2. Marked transient ischemic dilatation of the left ventricle in the stress images with TID ratio of 1.67, which may indicate severe underlying coronary artery disease. 3. No wall motion abnormality. 4. Normal left ventricular ejection fraction of 70%. JOB# [id number] SREE/SUSY MINAYA
[2019-02-06 05:45] LABS: Basophils # (Auto) 0.1 K/mm3 (0.0-0.1); Basophils % (Auto) 1.2 % (0.0-1.8); Eosinophils # (Auto) 0.2 K/mm3 (0.0-0.4); Eosinophils % (Auto) 2.9 % (0.0-4.3); Hematocrit 42.7 % (30.3-42.9); Lymphocytes # (Auto) 2.2 K/mm3 (1.2-5.4); Lymphocytes % (Auto) 34.5 % (13.4-35.0); Mean Corpuscular HGB Conc 33 % (30-34); Mean Corpuscular Volume 90 fl (79-97); Monocytes # (Auto) 0.5 K/mm3 (0.0-0.8); Monocytes % (Auto) 7.2 % (0.0-7.3); Platelet Count 225 K/mm3 (140-440); Red Blood Count 4.76 M/mm3 (3.65-5.03); Red Cell Distribution Width 15.1 % (13.2-15.2)
[2019-02-06 05:54] LABS: INR 1.09 (0.87-1.13)
[2019-02-06 06:04] LABS: BUN/Creatinine Ratio 19; Blood Urea Nitrogen 13 mg/dL (7-17); Calcium 9.6 mg/dL (8.4-10.2); Hemolysis Index 2
[2019-02-06] MEDS: HumuLIN R SUB-Q SCH ×2 (09:16→13:10)
[2019-02-06] MEDS: CLARITIN-D 12HR PO SCH (10:23)
[2019-02-06] MEDS: LOVENOX SUB-Q SCH (10:23)
[2019-02-06] MEDS ORDERED: HEPARIN 10,000 UNITS/10 ML ONE (11:06)
[2019-02-06] MEDS ORDERED: HEPARIN/NS 5000 UNIT/500ML(CATH LAB) 1,000 ML IR ONE (11:06)
[2019-02-06] MEDS ORDERED: CALAN ONE (11:06)
[2019-02-06] MEDS ORDERED: XYLOCAINE 2% INFILTRATI ONE (11:06)
[2019-02-06] MEDS ORDERED: NITROGLYCERIN SYRINGE 0 ML ONE (11:06)
[2019-02-06] MEDS ORDERED: NACL 0.9% 500 ML 500 ML ONE (11:18)
[2019-02-06] MEDS: SUBLIMAZE ONE ×2 (11:37→11:45)
[2019-02-06] MEDS: VERSED ONE ×2 (11:37→11:45)
--- NOTE | 2019-02-06 12:10 | Discharge Summary ---
Providers - Providers Date of Admission: 02/04/19 21:50 Attending physician: PITER SOLIZ MD 02/04/19 Consult to Physician [CONS] Routine Comment: Consulting Provider: MARGOTH ESPINAL Physician Instructions: Reason For Exam: SYNCOPE 02/04/19 23:19 Consult to Dietitian/Nutrition [CONS] Routine Physician Instructions: Reason For Exam: Reason for Consult: Nutrition Recommendations Reason for Consult: Diet education Occupational Therapy Evaluate and Treat [CONS] Routine Comment: Reason For Exam: Neuro deficits Physical Therapy Evaluation and Treat [CONS] Routine Comment: Reason For Exam: Neuro deficits 02/05/19 00:16 Consult to Dietitian/Nutrition [CONS] Routine Physician Instructions: Reason For Exam: Reason for Consult: Diet education 02/05/19 14:14 Physical Therapy Evaluation and Treat [CONS] Routine Comment: Reason For Exam: vestibular training Primary care physician: Brett ARREDONDO MD Hospitalization Condition: Stable Hospital course: cardiac cath negative. outpatient PT for vestibular training. CM will call on saturday and provide the information Disposition: DC-01 TO HOME OR SELFCARE Exam - Constitutional Vitals: Temp Pulse Resp BP Pulse Ox 97.9 F 73 20 137/62 96 02/06/19 08:36 02/06/19 08:36 02/06/19 05:29 02/06/19 08:36 02/06/19 08:36 Plan Activity: advance as tolerated, fall precautions Diet: low fat Special Instructions: record daily weights, record daily BP diary Follow up with: ISAIAH SAM MD [Staff Physician] - 7 Days Richi ARREDONDO MD [Primary Care Provider] - 3-5 Days Forms: Work/School Release Form Prescriptions: Acetaminophen [Acetaminophen TAB] 650 mg PO Q6HR PRN #20 tablet PRN Reason: Pain MILD(1-3)/Fever >100.5/BROWNING Meclizine [Antivert] 25 mg PO Q8H PRN #14 tablet PRN Reason: Vertigo
--- NOTE | 2019-02-06 12:12 | Progress Note ---
Assessment and Plan S/p LHC today which was normal. Currently stable cardiac status. Pt may discharge home from cardiology standpoint following completion of post-cath order set. Recommend follow up in our office with Dr. Recinos within 1-2 weeks of hospital discharge ([phone]). The patient has been seen in conjunction with Dr. Recinos who agrees with the assessment and plan of care. - Patient Problems (1) Syncope Current Visit: Yes Status: Acute (2) Chest pain Current Visit: Yes Status: Resolved (3) HTN (hypertension) Current Visit: Yes Status: Acute (4) Diabetes Current Visit: Yes Status: Acute Subjective Date of service: 02/06/19 Principal diagnosis: syncope Interval history: pt for LHC, c/o headache, no current cardiac complaints. in SR, no arrhythmias noted overnight. Objective Last Vital Signs Temp 97.9 F 02/06/19 08:36 Pulse 73 02/06/19 08:36 Resp 20 02/06/19 05:29 BP 137/62 02/06/19 08:36 Pulse Ox 96 02/06/19 08:36 - Physical Examination General: No Apparent Distress HEENT: Positive: PERRL, Normocephaly, Mucus Membranes Moist Neck: Positive: neck supple, trachea midline Cardiac: Positive: Reg Rate and Rhythm, S1/S2 Lungs: Positive: Decreased Breath Sounds Neuro: Positive: Grossly Intact Abdomen: Negative: Tender Skin: Negative: Rash Musculoskeletal: No Pain Extremities: Absent: edema - Labs and Meds Coagulation 02/06/19 Range/Units 04:31 PT 13.8 (12.2-14.9) Sec. INR 1.09 (0.87-1.13) CBC 02/06/19 Range/Units 04:31 WBC 6.5 (4.5-11.0) K/mm3 RBC 4.76 (3.65-5.03) M/mm3 Hgb 14.0 (10.1-14.3) gm/dl Hct 42.7 (30.3-42.9) % Plt Count 225 (140-440) K/mm3 Lymph # 2.2 (1.2-5.4) K/mm3 [place] # 0.5 (0.0-0.8) K/mm3 Eos # 0.2 (0.0-0.4) K/mm3 Baso # 0.1 (0.0-0.1) K/mm3 Comprehensive Metabolic Panel 02/06/19 Range/Units 04:31 Sodium 145 (137-145) mmol/L Potassium 4.0 (3.6-5.0) mmol/L Chloride 105.4 (98-107) mmol/L Carbon Dioxide 26 (22-30) mmol/L BUN 13 (7-17) mg/dL Creatinine 0.7 (0.7-1.2) mg/dL Glucose 131 H (65-100) mg/dL Calcium 9.6 (8.4-10.2) mg/dL - Imaging and Cardiology EKG: report reviewed, image reviewed Echo: report reviewed - Telemetry EKG Rhythm: Sinus Rhythm - EKG Sinus rhythms and dysrhythmias: sinus rhythm
--- NOTE | 2019-02-06 13:14 | Cardiac Catherization Report ---
INDICATION FOR PROCEDURE: A 63-year-old -[place] female with history of diabetes mellitus and syncopal episode, was evaluated with a nuclear myocardial perfusion imaging and was noted to have markedly elevated TID of 1.65. Hence scheduled for cardiac catheterization for definitive diagnosis and treatment. The patient is aware of the procedure, potential complications and alternatives of therapy available. DESCRIPTION OF PROCEDURE: The patient was brought to the catheterization laboratory in a fasting condition. The right wrist area and forearm thoroughly cleansed with chlorhexidine solution. Sterile drapes were applied. The patient was evaluated for moderate sedation and was felt to be appropriate candidate. Received IV Versed and fentanyl at 10:35 a.m. Subsequently, right radial artery puncture was made using 21-gauge arterial puncture needle. A 5-Austrian slender sheath was introduced. Initially multipurpose catheter was attempted; however, a 5-Austrian TIG catheter was used to obtain the angiograms of the left coronary artery and a 5-Austrian JR4 catheter was used to obtain the angiograms of the right coronary artery and left ventriculogram done in [place] projection. At the end of the procedure, catheter and sheath were removed. Throughout the procedure, the patient was monitored with pulse oximetry, EKG monitoring and hemodynamic monitoring. The patient tolerated the sedation well without any side effects. At the end of the procedure, the patient is able to communicate normally, moving all the extremities and breathing normally. Sedation monitoring ended at 11:59 a.m. The patient was transferred to the room in stable condition. The right radial band was applied for good hemostasis. No complications noted during the procedure. Following findings were noted. HEMODYNAMICS: 1. Opening aortic pressure 144/60. Left ventricular pressure 156/14. No gradient across the aortic valve. Estimated ejection fraction 55%. 2. Left ventriculogram done in [place] projection using hand injection showed normal sized left ventricle with normal contractility. Mitral regurgitation was not evaluated because of limited amount of dye injected. 3. Right coronary artery dominant vessel arises normally and angiographically smooth and normal. 4. Left coronary artery arises normally from left coronary cusp. Left main is smooth and normal. LAD curves around the apex. LAD and its branches and circumflex artery and its branch are angiographically smooth and normal. FINAL IMPRESSION: 1. Normal sized left ventricle with normal contractility. Normal end diastolic pressure. 2. Angiographically smooth and normal coronary anatomy. 3. The patient tolerated the procedure well. Findings were explained to the patient. JOB# [id number] MANUEL/SUSY
[2019-02-06] MEDS: CYMBALTA PO SCH (13:47)
[2019-02-06] MEDS: SODIUM CHLORIDE FLUSH SYRINGE 10 ML IV SCH (13:47)
[2019-02-06] MEDS: ASPIRIN PO SCH (13:47)
[2019-02-06] MEDS: FLONASE NS SCH (13:47)
[2019-02-06 13:51] VITALS: BP 130/48
[2019-02-06] MEDS: TYLENOL PO PRN (16:47)
== END 2019-02-06 20:34 | disposition home or self-care (01) ==
LOC: ED 13:40 → 4A 21:50
PROVIDERS: ADMIT Internal Medicine; ATTEND Internal Medicine
DX: R55 Syncope and collapse (principal); R00.1 Bradycardia, unspecified; I10 Essential (primary) hypertension; E11.9 Type 2 diabetes mellitus without complications; Z79.82 Long term (current) use of aspirin; Z79.4 Long term (current) use of insulin
CPT/HCPCS: 36415; 70450; 71275; 78452; 80048; 80053; 80061; 81001; 82550; 82553; 82962; 83735; 83880; 84439; 84443; 84484; 85025; 85379; 85610; 85730; 93005; 93010; 93017; 93306; 93458; 93880; 93970; 96372; 96374; 96376; 99284; A9270; A9502; C1887; C1894; G0378; J1644; J1650; J2250; J2405; J2785; J3010; J7040; Q9967; J1815

== ENCOUNTER 2020-12-15 13:51 | Outpatient (CLI) | payer OTHER ==
--- NOTE | 2020-12-16 11:46 | Mammography Report ---
DIGITAL SCREENING MAMMOGRAM WITH CAD, 12/15/2020 CLINICAL INFORMATION / INDICATION: Routine screening mammography. F/U TECHNIQUE: Digital bilateral 2D mammography was obtained in the craniocaudal and mediolateral obliqu e projections. This examination was interpreted with the benefit of Computer-Aided Detection analysis . COMPARISON: 12/15/2019 FINDINGS: Breast Density: There are scattered areas of fibroglandular density. No dominant mass, suspicious calcifications, or architectural distortion in either breast. IMPRESSION: No mammographic evidence of malignancy. Follow up recommendation: Routine yearly BI-RADS Category 1: Negative. A "normal" or negative report should not discourage follow up or biopsy of a clinically significant f inding. A written summary of these findings will be mailed to the patient. The patient will be entered into a mammography reporting system which will generate a reminder letter for the patient's next appointmen t at the appropriate interval. The [employer] recommends yearly mammograms starting at age 40 and continuing as l natalie as a woman is in good health. Breast MRI is recommended for women with an approximate 20-25% or greater lifetime risk of breast cancer, including women with a strong family history of breast or ova petra cancer or who have been treated for Hodgkin's disease. Signer Name: Janes Carranza MD Signed: 12/16/2020 11:42 AM Workstation Name: [id number]
== END 2020-12-15 13:52 | disposition home or self-care (01) ==
LOC: SPVWC 13:51
PROVIDERS: ATTEND Internal Medicine
DX: Z12.31 Encounter for screening mammogram for malignant neoplasm of breast (principal)
CPT/HCPCS: 77067